=== PATIENT | female | born 1970 | race Caucasian/White ===

== ENCOUNTER → 2020-04-13 15:34 | Outpatient (CLI) | payer BC, SELFPAY ==
--- NOTE | ~2020-04-13 | MM_ITS ---
EXAMINATION: MM screening [facility] BI w roberta HISTORY: Screening TECHNIQUE: Craniocaudal and mediolateral oblique 3-D tomosynthesis images were obtained and synthetic 2-D images were generated. CAD analysis was submitted and interpreted. COMPARISON: Comparison to multiple prior studies sequentially, with oldest reviewed study dated 12/2013. BREAST PARENCHYMAL COMPOSITION: The breasts are heterogeneously dense, which may obscure small masses . FINDINGS: There is possible architectural distortion in the upper outer quadrant of the right breast anteriorly, CC tomographic image 33 and MLO tomographic image 28. The left breast is stable. There ar e benign bilateral breast calcifications. IMPRESSION: 1. Possible architectural distortion upper outer quadrant of the right breast anteriorly. 2. Additional mammographic views and possible breast ultrasound are recommended. BI-RADS Category 0: Incomplete: Needs additional imaging evaluation. Reviewed, dictated and finalized at location A. TRIANGULATION SPECIALIST IMPRESSION: 1. Possible architectural distortion upper outer quadrant of the right breast a nteriorly. 2. Additional mammographic views and possible breast ultrasound are recommended . BI-RADS Category 0: Incomplete: Needs additional imaging evaluation.
== END ==
PROVIDERS: Visit Provider Student in an Organized Health Care Education/Training Program
DX: Z12.31 Encounter for screening mammogram for malignant neoplasm of breast (principal); R92.8 Other abnormal and inconclusive findings on diagnostic imaging of breast
CPT/HCPCS: 77063; 77067

== ENCOUNTER → 2020-05-10 14:23 | Outpatient (CLI) | payer BC, SELFPAY ==
--- NOTE | ~2020-05-10 | MMUS_ITS ---
EXAMINATION: MM diagnostic mammo unilat RT, US breast RT complete HISTORY: Possible architectural distortion reported in the upper outer quadrant of the right breast a nteriorly on 04/13/2020 screening mammogram TECHNIQUE: Additional 3-D tomosynthesis images of the right breast were performed and synthetic 2-D i mages were generated. CAD analysis was submitted and interpreted. High resolution complete right mario st ultrasound was performed. COMPARISON: 04/13/2020 bilateral digital screening mammogram FINDINGS: MAMMOGRAPHIC FINDINGS: Irregular density and spiculation is suggested in the inner aspect of the upper outer quadrant of the right breast. ULTRASOUND: 11 - 12:00 1.5 cm from nipple: There are 2 irregular hypoechoic areas with bridging hypoechoic soft t issue and prominent posterior shadowing. There is internal vascularity. The irregularity may measure up to 2.3 cm dimension. The findings are highly suggestive of malignancy. IMPRESSION: 1. Irregular shadowing hypoechoic mass with internal vascularity at 11 - 12:00 1.5 cm from nipple, hi ghly suggestive of malignancy. 2. Ultrasound-guided biopsy is recommended. BI-RADS category 5, highly suggestive of malignancy; appropriate action should be taken. Dr. Houston telephoned the report and ultrasound guided biopsy recommendation on 05/10/[address] Davis. Reviewed, dictated and finalized at location A. T TECHNICIAN IMPRESSION: 1. Irregular shadowing hypoechoic mass with internal vascularity at 11 - 12:00 1.5 cm from nipple, highly suggestive of malignancy. 2. Ultrasound-guided biopsy is recommended. BI-RADS category 5, highly suggestive of malignancy; appropriate action should be taken. Dr. Houston telephoned the report and ultrasound guided biopsy recommendation on 07/11/[address] Davis.
== END ==
PROVIDERS: PCP Family Medicine; Visit Provider Student in an Organized Health Care Education/Training Program
DX: N63.11 Unspecified lump in the right breast, upper outer quadrant (principal)
CPT/HCPCS: 76641; 77065

== ENCOUNTER 2020-06-13 08:24 | Outpatient (CLI) | payer BC, SELFPAY ==
--- NOTE | 2020-06-13 | ECHO_ITS ---
Patient Info Name: Mariela Arevalo Age: 49 years : 1970 Gender: Female Ht: 64 in Wt: 160 lbs BSA: 1.83 m2 HR: 72 bpm BP: 133 / 87 mmHg Heart Rhythm: Sinus Rhythm Technical Quality: Good Exam Date: 06/13/2020 8:50 AM Exam Location: [facility] Patient Status: Outpatient Admit Date: 06/13/2020 Staff Ordering Physician: MichealLynnette MD Ip Architect: Flako Melgar RDCS Attending Provider: Micheal, Lynnette Lozano MD Referring Physician: Micheal MENDOZA; Exam Type: CA echo doppler color flow Study Info Indications C50.411 - Malignant neoplasm of upper-outer quadrant of right female breast Complete two-dimensional, color flow and Doppler transthoracic echocardiogram is performed. Strain analysis performed. Summary 1. Complete two-dimensional, color flow and Doppler transthoracic echocardiogram is performed. 2. Strain analysis performed. 3. Left ventricular chamber dimension is normal. 4. Left ventricular systolic function is normal, estimated at 60-65%. 5. There is no increased left ventricular wall thickness. 6. Left ventricular septal wall motion is normal. 7. The left ventricular diastolic function is grade I diastolic dysfunction. 8. Global longitudinal strain is borderline at -18 %. 9. There is mild tricuspid valve regurgitation. Left Ventricle Left ventricular chamber dimension is normal. Left ventricular systolic function is normal, estimated at 60-65%. There is no increased left ventricular wall thickness. Left ventricular septal wall motion is normal. The left ventricular diastolic function is grade I diastolic dysfunction. Global longitudinal strain is borderline at -18 %. Right Ventricle Right ventricular chamber dimension is normal. Right ventricular systolic function is normal. Left Atria Left atrial chamber dimension is normal. Right Atria Right atrial chamber dimension is normal. Atrial Septum Intact interatrial septum visualized by color flow imaging. Aortic Valve The aortic valve is trileaflet. There is no aortic valve sclerosis. There is no aortic valve stenosis. There is trace aortic valve regurgitation. Pulmonic Valve The pulmonic valve is normal. There is no pulmonic valve stenosis. There is trace pulmonic regurgitation. Mitral Valve The mitral valve has thickened leaflets. There is no mitral valve stenosis. There is trace mitral valve regurgitation. Tricuspid Valve The tricuspid valve leaflets are normal. There is no significant tricuspid valve stenosis. There is mild tricuspid valve regurgitation. No pulmonary hypertension, estimated pulmonary arterial systolic pressure is 18 mmHg. Pericardium/Pleural The pericardium appears normal. There is no pericardial effusion. Inferior Vena Cava Normal inferior vena cava with >50% collapse upon inspiration consistent with normal right atrial pressure, 5 mmHg. Aorta The aortic root size at the sinus of Valsalva is normal. The prox ascending aorta size is normal. Left Ventricular Outflow Tract Name Value Normal LVOT 2D LVOT Diameter 2.0 cm LVOT Doppler
== END 2020-06-13 08:25 | disposition home or self-care (01) ==
LOC: ANHCARD 08:26
PROVIDERS: PCP Family Medicine; Visit Provider Internal Medicine Medical Oncology
DX: C50.411 Malignant neoplasm of upper-outer quadrant of right female breast (principal); Z17.0 Estrogen receptor positive status [ER+]
CPT/HCPCS: 93306

== ENCOUNTER 2020-06-21 03:10 | Outpatient (CLI) | payer BC, SELFPAY ==
[2020-06-21 19:22] LABS: SARS-CoV-2 RNA PCR Negative
== END 2020-06-21 03:11 | disposition home or self-care (01) ==
LOC: ANHCOVIDDT 03:11
PROVIDERS: Visit Provider Surgery
DX: Z01.812 Encounter for preprocedural laboratory examination (principal); Z20.822 Contact with and (suspected) exposure to COVID-19
CPT/HCPCS: C9803; U0003; U0005

== ENCOUNTER 2020-06-24 02:46 | Day surgery (SDC) | payer BC, SELFPAY ==
[2020-06-20 15:19] VITALS: BMI 27.6
[2020-06-24] VITALS (7 sets, daily range): BP systolic 111–134; BP diastolic 71–89; PULSE 62–98; RESP 14–17; TEMP 36.2–36.8; O2SAT 98–100
--- NOTE | ~2020-06-24 | XR_ITS ---
EXAMINATION: XR chest port-a-cath/central EXAM DATE: 06/24/2020 13:31 INDICATION: Maria Ines catheter insertion. TECHNIQUE: Portable AP frontal chest x-ray was obtained. There is no prior study for comparison. FINDINGS: There is a left-sided portacatheter, IJ approach, tip overlying the cavoatrial junction, ex pected position. There is mild cardiomegaly. There is indistinct reticulation, possible mild pulmonary edema. Retrocar diac edema or pneumonia. There is no pneumothorax suspected. There are no osseous abnormalities ident ified. IMPRESSION: 1. Portacatheter in position. No evidence postprocedure pneumothorax. 2. Possible pulmonary edema and/or left basilar pneumonia. Reviewed, dictated and finalized at location B. OMER RELATIONS COORDINATOR
--- NOTE | ~2020-06-24 | XR_ITS ---
EXAMINATION: XR fl guide central line place DATE: 06/24/2020 13:19 INDICATION: Port placement. TECHNIQUE: 2 intraoperative fluoroscopic views of the chest were obtained. I was not present. Fluoros copy exposure time was 42 seconds. COMPARISON: None. FINDINGS: There is a left internal jugular port with tip at superior cavoatrial junction. IMPRESSION: 1. Port tip at superior cavoatrial junction. Reviewed, dictated and finalized at location A. ER ASSOCIATE
[2020-06-24] MEDS: LACTATED RINGERS 1,000 ML 30 ML IV CONT (10:59)
[2020-06-24] MEDS: KETOROLAC 15 MG/ML VIAL (*BKC) IV PUSH (11:00)
[2020-06-24 11:09] LABS: INR 0.9; Prothrombin Time 12.3 Seconds (11.1-14.7)
[2020-06-24 11:10] LABS: Partial Thromboplastin Time 26.9 SECONDS (22.3-36.8)
--- NOTE | 2020-06-24 11:31 | WPDANESEPPF ---
Anes - Initial Pre Proc Eval Procedure: Operation Date: 06/24/20 11:30 Proposed Procedures p Insertion Maria Ines Cath - Anthony Melissa DO Date/Time: 06/24/20 11:31 Surgeon: Anthony Melissa DO Pre Op Diagnosis: Malignant Neoplasm Of Upper Outer Quadrant RightBr Patient Data Age: 49 Gender: F Height: 5 ft 4 in Weight: 73.8 kg Last Vital Signs Temp 36.8 C 06/24/20 10:50 Pulse 90 06/24/20 10:50 Resp 16 06/24/20 10:50 BP 129/81 06/24/20 10:50 Pulse Ox 98 06/24/20 10:50 Allergies Allergy/AdvReac Type Severity Reaction Status Date / Time No Known Allergies Allergy Verified 06/24/20 10:30 Home Medications Medication Instructions Recorded Confirmed Type cetirizine 10 mg tablet 10 mg PO DAILY PRN 06/22/19 06/24/20 History alprazolam 0.5 mg PO QID PRN 06/20/20 06/24/20 History calcium carbonate [Caltrate 600] 600 mg PO DAILY 06/20/20 06/24/20 History clindamycin-benzoyl peroxide 1 applic TOPICAL EVERY OTHER DAY 06/20/20 06/20/20 History [Benzaclin Pump] escitalopram oxalate 30 mg PO QAM 06/20/20 06/24/20 History zolpidem 6.25 mg PO .QHS 06/20/20 06/24/20 History Laboratory Tests 06/24/20 10:54 PT 12.3 Seconds Seconds (11.1-14.7) INR 0.9 APTT 26.9 SECONDS SECONDS (22.3-36.8) Patient hx anesthesia problems: none Family hx anesthesia problems: none PMFSH Past Medical History Medical History Anemia Anxiety Hyperlipidemia Migraines Prediabetes Ruptured ear drum (~2018) Right Vitamin D deficiency Surgical History Surgical History History of endometrial ablation History of myomectomy S/P breast lumpectomy Family History Family History Grandparent Carcinoma of colon Father Diabetes mellitus Other Family history of malignant neoplasm of breast Social History Social History Smoking status: Never smoker Second hand tobacco smoke exposure: No Alcohol intake: current Alcohol use details: 3 DRINKS/MONTH Substance use: never Living arrangements: alone Spiritual care concerns: No Anes - Eval Final PreProcedure Day of Procedure 06/24/20 11:31 Patient weight: overweight Heart: regular rate and rhythm Lungs: clear to auscultation Airway: Mallampati scale class II Neurological: alert and oriented Last oral intake: >/= 8 hours ASA classification: III Emergent: no Anesthetic plan: proceed Anesthesia type and monitoring: general GIVS and standard monitoring Informed Consent: The patient's anesthetic plan and its attendant risks and benefits were discussed with the patient/family/POA. Questions were solicited and answers provided to the satisfaction of the patient/family/POA.
--- NOTE | 2020-06-24 12:00 | PM.IMHP ---
H&P: HPI History of Present Illness Date/Time: 06/24/20 12:00 Chief Complaint: right breast cancer Narrative: Mariela Arevalo is a 49 year old female who presents for Portacath placement. She was recently diagnosed with right breast cancer and is undergoing neoadjuvant treatment. She is in need of port placement for usp venous access. Review of Systems Review of Systems: All systems reviewed & are unremarkable except as noted in HPI and below Constitutional: Constitutional: Denies chills, Denies fever(s), Denies headache(s) and Denies weight loss Eyes: Eyes: Denies change in vision ENT: Denies dizziness, Denies headache(s), Denies neck mass and Denies throat swelling Cardiovascular: Cardiovascular: Denies chest pain, Denies lightheadedness and Denies dyspnea Respiratory: Respiratory: Denies cough, Denies dyspnea and Denies wheezing Gastrointestinal: Gastrointestinal: Denies abdominal pain, Denies change in bowel habits, Denies nausea and Denies vomiting Genitourinary: Genitourinary: Denies hematuria and Denies dysuria Musculoskeletal: Musculoskeletal: Reports as per HPI Integumentary/Breasts: Skin/Breast: Reports as per HPI Neurologic: Denies dizziness and Denies headache(s) Allergic/Immunologic: Allergic/Immunologic: Denies throat swelling and Denies wheezing PMFSH Past Medical History Medical History Anemia Anxiety Hyperlipidemia Migraines Prediabetes Ruptured ear drum (~2019) Right Vitamin D deficiency Surgical History Surgical History History of endometrial ablation History of myomectomy S/P breast lumpectomy Family History Family History Grandparent Carcinoma of colon Father Diabetes mellitus Other Family history of malignant neoplasm of breast Social History Social History Smoking status: Never smoker Second hand tobacco smoke exposure: No Alcohol intake: current Alcohol use details: 3 DRINKS/MONTH Substance use: never Living arrangements: alone Spiritual care concerns: No Meds Home Medications and Allergies Home Medications Medication Instructions Recorded Confirmed Type cetirizine 10 mg tablet 10 mg PO DAILY PRN 06/22/19 06/24/20 History alprazolam 0.5 mg PO QID PRN 06/20/20 06/24/20 History calcium carbonate [Caltrate 600] 600 mg PO DAILY 06/20/20 06/24/20 History clindamycin-benzoyl peroxide 1 applic TOPICAL EVERY OTHER DAY 06/20/20 06/20/20 History [Benzaclin Pump] escitalopram oxalate 30 mg PO QAM 06/20/20 06/24/20 History zolpidem 6.25 mg PO .QHS 06/20/20 06/24/20 History Allergies Allergy/AdvReac Type Severity Reaction Status Date / Time No Known Allergies Allergy Verified 06/24/20 10:30 Vital Signs Vital Signs - 24 hr 06/24/20 10:50 Temperature 36.8 C Pulse Rate 90 Respiratory Rate 16 Blood Pressure 129/81 Pulse Oximetry 98 Exam Const: General: no acute distress and alert Orientation/consciousness: patient oriented x3 HENMT: Head: normocephalic and atraumatic Ears: hearing grossly normal bilaterally General nose exam: Normal nares present Mouth: Yes Normal oral and palatal mucosa present Eyes: Periorbital: periorbital findings normal Sclera: sclerae normal EOM: EOMs intact bilaterally Neck: Neck: normal visual inspection, no lymphadenopathy and trachea midline Chest: Chest palpation & inspection: normal inspection of the chest Resp: Effort & Inspection: normal respiratory effort Auscultation: clear to auscultation bilaterally Cardio: Jugular venous distension: no JVD Rate: regular rate Rhythm: regular rhythm Heart sounds: S1 normal heart sound present and S2 normal heart sound present Peripheral pulses: Peripheral pulses 2+ throughout GI: Inspection: normal to inspecti
--- NOTE | 2020-06-24 12:02 | WPDHPUPDATE1 ---
History and Physical Update Update Date/Time: 06/24/20 12:02 History and Physical has been reviewed, including an updated exam of the patient. There are NO changes in the patient's condition. Risks, benefits, and alternatives have been discussed and questions answered. Patient agrees to proceed with procedure.
[2020-06-24] MEDS: ceFAZolin 2 GM/D5W 50 ML 2 GM/50 ML BAG IVPB (12:31)
[2020-06-24] MEDS: LIDO 1%/EPINEPHRINE 1:100,000 50 ML VIAL 30 ML INFILTRATE (12:56)
[2020-06-24] MEDS: HEPARIN SODIUM, PORCINE 10,000 UNITS/10 ML VIAL 10000 UNITS IV PUSH (12:57)
[2020-06-24] MEDS: HEPARIN SODIUM 5,000 UNITS/ML VIAL 5000 UNITS IRRIGATION (12:58)
--- NOTE | 2020-06-24 13:18 | PM.PROC ---
Procedure Note - Detailed Date of procedure: 06/24/20 Pre-op diagnosis: Malignant Neoplasm Of Upper Outer Quadrant RightBr Post-op diagnosis: same Procedure performed: Left internal jugular Port-A-Cath placement using ultrasound and fluoroscopic guidance Description of procedure: Procedure as well as risks, benefits, and alternatives were discussed with patient. Written consent was obtained and placed in chart prior to procedure. Patient was brought back to surgical suite. Was placed supine on operating table. Time-out was done confirm patient procedure. IV sedation was then administered by the Anesthesia Department. The chest and neck area was prepped and draped in sterile fashion using chlorhexidine prep. Patient was placed in Trendelenburg position. SonoSite ultrasound was used to identify the left internal jugular vein. It was visualized as a compressible vessel just lateral to the carotid artery. 1% lidocaine with epinephrine was infiltrated directly over the vessel under ultrasound guidance. An 18 gauge introducer needle was then advanced under ultrasound guidance directly into the left internal jugular vein. Dark nonpulsatile blood was aspirated. A 0.035 in guidewire was then advanced through the needle under fluoroscopic guidance. The guidewire was visualized advancing all the way down into the superior vena cava. 1% lidocaine with epinephrine was then infiltrated on the left anterior chest and along the tract up to the guidewire insertion site. A 3 cm incision was made with a 15 blade scalpel, and electrocautery was then used for dissection down through the subcutaneous tissue to the pectoral fascia. A pocket was created just inferior to the incision using blunt dissection. A small davin incision was then also made at the insertion site at the neck. The tunneler was then advanced from the chest incision up to the neck incision and the catheter tubing was brought up through this tract. The dilator and sheath were then advanced over the guidewire under fluoroscopic visualization. The dilator and guidewire were then removed leaving the sheath in place. The catheter tubing was then advanced through the sheath under fluoroscopic guidance. The sheath was unsnapped and carefully peeled away. The catheter tubing was released underneath the neck incision. Fluoroscopy was used to confirm proper placement of the catheter tubing and no kinks along its path. The catheter was then cut to proper length and secured to the port. The port was then accessed with a Li needle and aspirated and flushed with heparinized saline. The port function with ease. The port was then hep-locked with Hep-Lock solution. The port was then placed within the pocket that was created, and was secured to the fascia using 3 0 Prolene simple interrupted sutures. The patient was flattened out in bed. Shaun's fascia was reapproximated using 3 0 Vicryl simple interrupted sutures. The skin of the incisions was then approximated using 4-0 Monocryl subcuticular suture. Exofin glue was then applied on top. The patient was then awakened from anesthesia and transferred to recovery. Implants: Smart Port CT port Anesthesia: MAC and local (1% lidocaine with epinephrine) Surgeon: Anthony Melissa DO Estimated blood loss (mL): 5 Complications: No immediate complications Condition: stable Disposition: same day Findings: This is a 49-year-old woman who presented with a recent finding of right breast cancer. She underwent biopsy which confirmed cancer and was then referred to Oncology for neoadjuvant treatment. She is scheduled to start chemotherapy and is in need of long-term IV access. Discussions were made with the patient about treatment options and decision was made to proceed with Port-A-Cath placement. A smart Port CT port was placed using ultrasound and fluoroscopic guidance. SonWireless Tech ultrasound was used to identify the left internal jugular vein. This was visualized as compr
== END 2020-06-24 15:00 | disposition home or self-care (01) ==
PROVIDERS: PCP Family Medicine; Visit Provider Surgery
PROC: (CPT 36561; principal; 2020-06-24 11:30)
DX: C50.411 Malignant neoplasm of upper-outer quadrant of right female breast (principal); D64.9 Anemia, unspecified; F41.9 Anxiety disorder, unspecified; E78.5 Hyperlipidemia, unspecified; R73.03 Prediabetes; E55.9 Vitamin D deficiency, unspecified
CPT/HCPCS: 36561; 36415; 77001; 85610; 85730; C1788; J0690; J1200; J1644; J1885; J2250; J2405; J2704; J3010; J7040; J7120

== ENCOUNTER 2020-06-26 22:01 | Emergency (ER) | payer BC, SELFPAY ==
[2020-06-26 22:03] VITALS: BP 173/82; PULSE 98; RESP 20; TEMP 36.6; O2SAT 99
--- NOTE | 2020-06-26 22:23 | PC.NURSE ---
Patient had port placed to left upper chest on tami. Area surrounding the surgical site is red, warm, and subjectively itching. Skin glue is noted in place and surgical wound is closed and intact. There is no drainage noted to the area.
--- NOTE | 2020-06-26 22:28 | ED.ALLEREA ---
HPI - Allergic Reaction General Chief complaint: Allergic Reaction Stated complaint: allergic rxn Time Seen by Provider: 06/26/20 22:10 Source: patient Mode of arrival: ambulatory Limitations: no limitations History of Present Illness HPI narrative: A 49-year-old female [facility] of an allergic reaction. Patient states it is very localized to the area where she just recently had a port placed. Patient notes that she has breast cancer and had to have a port placed that she may begin chemotherapy on Saturday. She states starting yesterday she was noticing some itching in the area and states today it has been getting progressively worse. She does note that she presented today for 2 different reasons. Patient notes that she took 2 Benadryl around 4:30 PM and then approximately an hour prior to arrival she took a third Benadryl. She started having some flushness and anxiousness and was not certain if this was due to a Benadryl overdose. Secondly she is seeking advice and treatment for her reaction. Related Data Home Medications Medication Instructions Recorded Confirmed cetirizine 10 mg tablet 10 mg PO DAILY PRN 06/22/19 06/24/20 alprazolam 0.5 mg PO QID PRN 06/20/20 06/24/20 calcium carbonate 600 mg PO DAILY 06/20/20 06/24/20 clindamycin-benzoyl peroxide 1 applic TOPICAL EVERY OTHER DAY 06/20/20 06/20/20 [Benzaclin Pump] escitalopram oxalate 30 mg PO QAM 06/20/20 06/24/20 zolpidem 6.25 mg PO .QHS 06/20/20 06/24/20 Allergies Allergy/AdvReac Type Severity Reaction Status Date / Time No Known Allergies Allergy Verified 06/26/20 22:20 Review of Systems Review of Systems: Narrative: CONSTITUTIONAL: Denies fever, chills, or sweats. EYES: Denies visual changes, redness, or discharge. ENT: Denies rhinorrhea, congestion, sore throat, or otalgia. CARDIOVASCULAR: Denies chest pain, palpitations, or edema. RESPIRATORY: Denies cough or dyspnea. GASTROINTESTINAL: Denies abdominal pain, nausea, vomiting, or diarrhea. GENITOURINARY: Denies dysuria or hematuria. SKIN: Denies rash or itching. Pruritic rash on the anterior chest MUSCULOSKELETAL: Denies back pain, joint pain, or myalgia. NEUROLOGIC: Denies headache, numbness, dizziness, or weakness. PSYCHIATRIC: Denies anxiety or depression. [facility] Past Medical History Medical History Anemia Anxiety Hyperlipidemia Migraines Prediabetes Ruptured ear drum (~2019) Right Vitamin D deficiency Surgical History Surgical History History of endometrial ablation History of myomectomy S/P breast lumpectomy Family History Family History Grandparent Carcinoma of colon Father Diabetes mellitus Other Family history of malignant neoplasm of breast Social History Social History Smoking status: Never smoker Second hand tobacco smoke exposure: No Alcohol intake: current Substance use: never Gender identity (if verbalized by the patient): Female Spiritual care concerns: No Exam Narrative: Exam Narrative: GENERAL: Well-appearing, well-nourished, and in no acute distress. HEAD: Normocephalic, atraumatic. EYES: PERRLA and EOMI. ENT: Nares clear, no rhinorrhea or epistaxis. Mucous membranes moist. Oropharynx without tonsillar hypertrophy exudate or other lesions. Bilateral TMs pearly ace nonbulging NECK: Supple. No adenopathy or masses. No carotid bruits or JVD CHEST: Clear to auscultation. No respiratory distress. No wheezes rales or rhonchi. Erythema and what appears to be well-healing wound pocket on the left anterior chest HEART: Regular rate and rhythm. No murmur heard. Normal peripheral pulses. ABDOMEN: Soft, nontender, nondistended, normal active bowel sounds. EXTREMITIES: Normal range of motion. No edema. S
== END 2020-06-26 22:47 | disposition home or self-care (01) ==
PROVIDERS: Emergency Provider Emergency Medicine; PCP Family Medicine
DX: T78.40XA Allergy, unspecified, initial encounter (principal); C50.919 Malignant neoplasm of unspecified site of unspecified female breast; F41.9 Anxiety disorder, unspecified; E78.5 Hyperlipidemia, unspecified; E55.9 Vitamin D deficiency, unspecified; R73.03 Prediabetes; Z86.2 Personal history of diseases of the blood and blood-forming organs and certain disorders involving the immune mechanism
CPT/HCPCS: 99283

== ENCOUNTER 2020-08-19 13:59 | Outpatient (CLI) | payer BC, SELFPAY | END 2020-08-19 14:00 | disposition home or self-care (01) | LOC: ANHCOVIDVC 13:59 | PROVIDERS: PCP Family Medicine | DX: Z23 Encounter for immunization (principal) | CPT/HCPCS: 0001A; 91300 ==

== ENCOUNTER 2020-09-09 10:28 | Outpatient (CLI) | payer BC, SELFPAY | END 2020-09-09 10:29 | disposition home or self-care (01) | LOC: ANHCOVIDVC 10:28 | PROVIDERS: PCP Family Medicine | DX: Z23 Encounter for immunization (principal) | CPT/HCPCS: 0002A; 91300 ==

== ENCOUNTER 2020-09-12 10:36 | Outpatient (CLI) | payer BC, SELFPAY ==
--- NOTE | 2020-09-12 | ECHO_ITS ---
Patient Info Name: Mariela Arevalo Age: 49 years : 1970 Gender: Female Ht: 64 in Wt: 155 lbs BSA: 1.80 m2 HR: 89 bpm BP: 127 / 90 mmHg Heart Rhythm: Sinus Rhythm Technical Quality: Good Exam Date: 09/12/2020 11:28 AM Exam Location: [facility] Pulmonary Patient Status: Outpatient Admit Date: 09/12/2020 Staff Ordering Physician: Malik Wang MD Icu Clerk: Luisana Garcia RDCS Attending Provider: Malik Wang MD Referring Physician: Kathleen ARGUELLES; Exam Type: CA echo doppler color flow Study Info Indications C50.411 - Malignant neoplasm of upper-outer quadrant of right female breast Complete two-dimensional, color flow and Doppler transthoracic echocardiogram is performed. Summary 1. Complete two-dimensional, color flow and Doppler transthoracic echocardiogram is performed. 2. Left ventricular chamber dimension is normal. 3. Left ventricular systolic function is mildly reduced, estimated at 45-50%. 4. The left ventricular diastolic function is grade I diastolic dysfunction. 5. Global longitudinal strain is moderately elevated at -11 %. 6. There is trace tricuspid valve regurgitation. 7. No pulmonary hypertension, estimated pulmonary arterial systolic pressure is 20 mmHg. Left Ventricle Left ventricular chamber dimension is normal. Left ventricular systolic function is mildly reduced, estimated at 45-50%. There is no increased left ventricular wall thickness. The left ventricular diastolic function is grade I diastolic dysfunction. Global longitudinal strain is moderately elevated at -11 %. Right Ventricle Right ventricular chamber dimension is normal. Right ventricular systolic function is normal. Left Atria Left atrial chamber dimension is normal. Right Atria Right atrial chamber dimension is normal. Aortic Valve The aortic valve is probable trileaflet. There is no aortic valve stenosis. There is no aortic valve regurgitation. Mitral Valve The mitral valve has normal leaflets. There is mild mitral valve regurgitation. Tricuspid Valve The tricuspid valve leaflets are normal. There is trace tricuspid valve regurgitation. No pulmonary hypertension, estimated pulmonary arterial systolic pressure is 20 mmHg. Pericardium/Pleural The pericardium appears normal. There is trivial pericardial effusion. Inferior Vena Cava Normal inferior vena cava with >50% collapse upon inspiration consistent with normal right atrial pressure, 5 mmHg. Aorta The aortic root size at the sinus of Valsalva is normal. Left Ventricular Outflow Tract Name Value Normal LVOT 2D LVOT Diameter 1.9 cm LVOT Doppler LVOT Peak Gradient 3 mmHg LVOT Mean Gradient 1 mmHg LVOT VTI 19 cm LVOT VTI/AV VTI Ratio 0.8 LVOT Stroke Volume 54 ml LVOT CO 3.2 l/min LVOT CI 1.8 l/min/m2 Pulmonic Valve Name
== END 2020-09-12 10:37 | disposition home or self-care (01) ==
PROVIDERS: PCP Family Medicine; Visit Provider Internal Medicine Hematology & Oncology
DX: C50.411 Malignant neoplasm of upper-outer quadrant of right female breast (principal); Z17.0 Estrogen receptor positive status [ER+]; I51.89 Other ill-defined heart diseases
CPT/HCPCS: 93306

== ENCOUNTER 2020-10-24 10:15 | Emergency (ER) | payer BC, SELFPAY ==
--- NOTE | ~2020-10-24 | CT_ITS ---
EXAMINATION: CTA chest PE protocol EXAM DATE: 10/24/2020 13:43 INDICATION: Dyspnea. Right-sided breast cancer. TECHNIQUE: Spiral CTA of the chest (pulmonary arteries) was performed with 100 cc Omnipaque 350 intr avenous contrast injection. Images were acquired during the pulmonary arterial phase. Coronal maxi mum intensity projection 3D-reconstructions were created by the technologist on dedicated workstation . Axial, coronal and sagittal reformatted images were reviewed. The dose-length product (DLP) for t his examination was 276.80 mGy-cm. The exposure was tailored according to patient size (auto mA exp osure control), and iterative reconstruction (ASIR) was used as additional dose reduction technique. There is no prior study for comparison. FINDINGS: Positive for subsegmental right lower lobe pulmonary embolism (axial sequence 3 images 133 -140). No other pulmonary emboli identified. There is a left-sided portacatheter. No thoracic aortic dissection. The lungs are clear. There are no pleural or pericardial effusions. Tracheobronchia l tree is patent. There is no mediastinal, hilar or axillary lymphadenopathy. There is no pneumot horax. Heart normal in size. No evidence of coronary arterial calcification. Upper abdomen is un remarkable. There is mild thoracic spondylosis without osteoblastic or osteolytic lesions identifie d. IMPRESSION: Small, subsegmental right lower lobe pulmonary embolism. Reviewed, dictated and finalized at location A.
--- NOTE | ~2020-10-24 | XR_ITS ---
EXAMINATION: XR chest 1V portable DATE: 10/24/2020 11:15 INDICATION: Dyspnea. TECHNIQUE: A single frontal view of the chest was obtained. COMPARISON: Chest single view 06/24/2020 FINDINGS: The chest demonstrates clear lungs without pneumonia, pleural effusion, or pneumothorax. Th e heart size is normal. There is a left internal jugular port with tip in superior vena cava. Two den sities overlie right breast that may be markers. IMPRESSION: 1. No acute cardiopulmonary disease. Reviewed, dictated and finalized at location A.
[2020-10-24 10:27] VITALS: BP 137/89; PULSE 111; RESP 15; TEMP 36.7; O2SAT 97
[2020-10-24] MEDS: LORazepam INJ (*CRX) 2 MG/ML VIAL 1 MG IV PUSH (11:40)
[2020-10-24] MEDS: SODIUM CHLORIDE 0.9% IV 1,000 ML 999 ML IV CONT (11:41)
[2020-10-24 11:48] LABS: Basophils Percent Auto 0.4 % (0.2-1.2); Eosinophils Absolute Auto 0.1 K/mm3 (0-0.3); Eosinophils Percent Auto 1.8 % (0-4.4); Hematocrit 34.5 % (37.0-47.0); Hemoglobin 10.9 g/dL (12.0-15.0); Immature Granulocyte Absolute 0.01 K/mm3 (0.00-0.031); Immature Granulocyte Percent A 0.2 % (0-0.5); Lymphocytes Absolute Auto 1.84 K/mm3 (0.9-3.2); Lymphocytes Percent Auto 33.5 % (18.3-44.2); Mean Corpuscular HGB Conc 31.6 g/dl (32-36); Mean Corpuscular Hemoglobin 29.4 pg (26-34); Mean Platelet Volume 8.7 fl (7.4-10.4); Monocytes Absolute Auto 0.8 K/mm3 (0.1-0.6); Neutrophils Absolute Auto 2.8 K/mm3 (1.3-6.7); Neutrophils Percent Auto 50.1 % (45.5-73.1); Platelet Count Result 305 k/mm3 (150-375); Red Blood Count 3.71 M/mm3 (4.2-5.4); Red Cell Distribution Width 18.6 % (11.5-14.5); White Blood Count 5.5 K/mm3 (4.5-10.0)
[2020-10-24 11:57] LABS: Alanine Aminotransferase 18 U/L (4-35); Alkaline Phosphatase 79 U/L (38-126); Anion Gap 8 mmol/L (8-16); Aspartate Amino Transferase 37 U/L (14-36); Bilirubin,Total 0.6 mg/dL (0.2-1.3); Blood Urea Nitrogen 12 mg/dL (7-17); Calcium 9.4 mg/dL (8.4-10.2); Carbon Dioxide 25 mmol/L (22-30); Chloride 107 mmol/L (98-107); Estimated CRCL calculation 65 ml/min; Estimated Glomerular Filt Rate > 60; Glucose 96 mg/dL (65-105); Potassium 3.5 mmol/L (3.4-5.0); Sodium 140 mmol/L (137-145)
--- NOTE | 2020-10-24 12:50 | ECG_ITS ---
Measurements Intervals [place] Rate: 65 P: 43 VT: 166 QRS: -22 QRSD: 84 T: 17 QT: 365 QTc: 382 Interpretive Statements SINUS RHYTHM DELAYED PRECORDIAL R/S TRANSITION BORDERLINE T WAVE ABNORMALITY- INFERIOR LEADS BORDERLINE ECG Electronically Signed On 10-24-2020 18:47:39 CDT by Jamar Gee D.O.
--- NOTE | 2020-10-24 13:00 | PC.NURSE ---
Called lab to add on a trop and lipase
[2020-10-24] MEDS: LORazepam INJ (*CRX) 2 MG/ML VIAL 0.5 MG IV PUSH (13:14)
[2020-10-24 13:39] LABS: Lipase 321 U/L (23-300)
[2020-10-24 13:56] LABS: Troponin I < 0.012 ng/mL (0.000-0.034)
--- NOTE | 2020-10-24 14:28 | ED.ANXIETY ---
HPI - Anxiety General Chief Complaint: Anxiety Stated Complaint: anxiety Time Seen by Provider: 10/24/20 10:22 Source: RN notes reviewed History of Present Illness HPI narrative: Patient presents to emergency department from home for anxiety. The patient states that she has a history of anxiety for which she takes Xanax at home she states that her anxiety is increased over the past 4 days. She is currently followed by Dr. wang for lung cancer and had been on chemo but is stopped the chemo she not been able to tolerate it patient discussed with Dr. wang who sent to the ED for further evaluation today. Patient states with her anxiety she feels like she is panicking with shortness of breath and nausea she denies any chest pain or vomiting Related Data Home Medications Medication Instructions Recorded Confirmed dexamethasone 4 mg tablet 8 mg PO BID tablet 09/14/20 10/14/20 ondansetron HCl 8 mg tablet 8 mg PO TID tablet 09/14/20 10/14/20 prochlorperazine maleate 10 mg 10 mg PO TID tablet 09/14/20 10/14/20 tablet megestrol [Megace] 400 mg PO DAILY 10/07/20 10/14/20 cetirizine 10 mg tablet 10 mg PO DAILY PRN 10/10/20 10/14/20 escitalopram oxalate 20 mg tablet 30 mg PO DAILY tablet 10/10/20 10/14/20 potassium chloride 20 meq PO DAILY 10/14/20 10/14/20 Allergies Allergy/AdvReac Type Severity Reaction Status Date / Time No Known Allergies Allergy Verified 10/24/20 10:31 Review of Systems Review of Systems: Narrative: Gen.: Denies fevers or chills ENT: Denies congestion Respiratory: Reports shortness of breath CV: Denies chest pain or palpitations GI: Denies abdominal pain emesis or diarrhea reports nausea Musculoskeletal: Denies back pain or muscle pain Neuro: Denies numbness, tingling, weakness or focal weakness Skin: Denies rash Except as documented, all other systems reviewed and negative [facility] Past Medical History Medical History Anemia Anxiety Hyperlipidemia Insomnia Migraines Prediabetes Ruptured ear drum (~2018) Right Vitamin D deficiency Surgical History Surgical History (Updated 10/10/20 @ 15:01 by Edith Bartlett MD) History of endometrial ablation 2011 History of myomectomy 2012 Family History Family History Grandparent Carcinoma of colon Father Diabetes mellitus Other Family history of malignant neoplasm of breast Social History Social History Smoking status: Never smoker Second hand tobacco smoke exposure: No Alcohol intake: current Substance use: never Gender identity (if verbalized by the patient): Female Spiritual care concerns: No Exam Narrative: Exam Narrative: APPEARANCE: Anxious in appearance nontoxic, resting in bed EYES: EOMI HEENT: Normocephalic, atraumatic, OMM RESPIRATORY: No respiratory distress Clear to auscultation bilaterally with no rhonchi wheezing or rales. CARDIOVASCULAR: Regular rate and rhythm without murmurs rubs or gallops. ABDOMINAL: Soft, nontender, nondistended, no rebound or guarding MUSCULOSKELETAl: Moves all extremities. No clubbing, cyanosis or edema. NEURO: Awake and alert. Following commands, speech normal, no focal deficits SKIN:: Warm, dry. No rashes lesions or abrasions PSYCHIATRIC: Normal affect/mood, Course Course Emergency Course: Called and discussed with BRANDT Banuelos for Dr Valenzuela. Feels with signs of PE patient may be discharged follow-up as an outpatient Discussed with Dr. Wang presentation work-up sent request patient be started on Xarelto and will follow as an outpatient feels patient may be discharged. Requested patient be discharged with Ativan for her anxiety Discussed with patient results of workup and diagnosis. Discussed need for follow-up with primary care, proper use of medication, and reasons to return to the emergency department. [place]
[2020-10-24 15:40] VITALS: BP 129/85; PULSE 98; RESP 16; O2SAT 98
[2020-10-24] MEDS: HEPARIN SOD FLUSH 500 UNITS/5 ML SYRINGE (15:40)
[2020-10-24] MEDS: RIVAROXABAN 15 MG TABLET PO (15:40)
== END 2020-10-24 15:40 | disposition home or self-care (01) ==
PROVIDERS: Emergency Provider Emergency Medicine; PCP Family Medicine
DX: F41.9 Anxiety disorder, unspecified (principal); I26.99 Other pulmonary embolism without acute cor pulmonale; E78.5 Hyperlipidemia, unspecified; R73.03 Prediabetes
CPT/HCPCS: 36415; 71045; 71275; 80053; 83690; 84484; 85025; 93005; 96361; 96374; 96376; 99284; A9270; J2060; J7030; Q9967

== ENCOUNTER 2021-01-04 13:51 | Outpatient (CLI) | payer BC, SELFPAY ==
--- NOTE | 2021-01-04 14:00 | ECHO_ITS ---
Patient Info Name: Mariela Arevalo Age: 50 years : 1970 Gender: Female Ht: 64 in Wt: 142 lbs BSA: 1.72 m2 HR: 106 bpm BP: 127 / 99 mmHg Technical Quality: Good Exam Date: 01/04/2021 2:53 PM [facility] Patient Status: Outpatient Admit Date: 01/04/2021 Staff Ordering Physician: Malik Wang MD Sales Financial Analyst: Krzysztof Kennedy RDCS, RT Attending Provider: Malik Wang MD Referring Physician: Kathleen ARGUELLES; Exam Type: CA echo doppler color flow Study Info Indications Z85.3 - Personal history of malignant neoplasm of breast Complete two-dimensional, color flow and Doppler transthoracic echocardiogram is performed. Strain analysis performed. Summary 1. Complete two-dimensional, color flow and Doppler transthoracic echocardiogram is performed. 2. Left ventricular chamber dimension is normal. 3. Left ventricular systolic function is normal, estimated at 55-60%. 4. The left ventricular diastolic function is grade I diastolic dysfunction. 5. E/e' 6 is not elevated. 6. Global longitudinal strain is abnormal at -13.8%. 7. Left atrial chamber dimension is mildly enlarged. 8. There is mild mitral valve regurgitation. Left Ventricle E/e' 6 is not elevated. Global longitudinal strain is abnormal at -13.8%. Left ventricular chamber dimension is normal. Left ventricular systolic function is normal, estimated at 55-60%. The left ventricular diastolic function is grade I diastolic dysfunction. Right Ventricle Right ventricular systolic function is normal and with normal TAPSE 1.9 cm. Right ventricular chamber dimension is normal. Left Atria Left atrial chamber dimension is mildly enlarged. Right Atria Right atrial chamber dimension is normal. Aortic Valve The aortic valve is trileaflet. There is no aortic valve stenosis. There is no aortic valve regurgitation. Pulmonic Valve There is no pulmonic regurgitation. Mitral Valve There is no mitral valve stenosis. There is mild mitral valve regurgitation. Tricuspid Valve There is no tricuspid valve regurgitation. Pericardium/Pleural There is no pericardial effusion. Inferior Vena Cava Normal inferior vena cava with >50% collapse upon inspiration consistent with normal right atrial pressure, 5 mmHg. Aorta The aortic root size at the sinus of Valsalva is normal. Left Ventricular Outflow Tract Name Value Normal LVOT 2D LVOT Diameter 2.1 cm LVOT Doppler LVOT Peak Gradient 2 mmHg LVOT Mean Gradient 1 mmHg LVOT VTI 14 cm LVOT VTI/AV VTI Ratio 0.7 LVOT Stroke Volume 48 ml LVOT CO 4.3 l/min LVOT CI 2.5 l/min/m2 Mitral Valve Name Value Normal MV Doppler
== END 2021-01-04 13:52 | disposition home or self-care (01) ==
LOC: ANHCARD 14:03
PROVIDERS: PCP Family Medicine; Visit Provider Internal Medicine Hematology & Oncology
DX: C50.411 Malignant neoplasm of upper-outer quadrant of right female breast (principal); Z17.0 Estrogen receptor positive status [ER+]
CPT/HCPCS: 93306

== ENCOUNTER 2021-03-28 12:57 | Outpatient (CLI) | payer BC, SELFPAY ==
--- NOTE | 2021-03-28 | ECHO_ITS ---
Patient Info Name: Mariela Arevalo Age: 50 years : 1970 Gender: Female Ht: 64 in Wt: 147 lbs BSA: 1.75 m2 HR: 101 bpm BP: 140 / 95 mmHg Heart Rhythm: Sinus Rhythm Exam Date: 03/28/2021 1:10 PM Exam Location: [facility] Pulmonary Patient Status: Outpatient Admit Date: 03/28/2021 Staff Ordering Physician: Malik Wang MD Firmware Manager: Luisana Garcia RDCS Attending Provider: Malik Wang MD Referring Physician: Kathleen ARGUELLES; Exam Type: CA echo doppler color flow Study Info Indications - MALIGNANT NEOPLASM OF UPPER-OUTER QUADRANT OF RIGHT BREAST Complete two-dimensional, color flow and Doppler transthoracic echocardiogram is performed. Summary 1. Complete two-dimensional, color flow and Doppler transthoracic echocardiogram is performed. 2. Left ventricular chamber dimension is normal. 3. Left ventricular systolic function is normal, estimated at 60-65%. 4. The left ventricular diastolic function is grade I diastolic dysfunction. 5. E/e' 8 is minimally elevated. 6. Global longitudinal strain is abnormal at -11.9%. 7. Left atrial chamber dimension is mildly enlarged. 8. There is mild mitral valve regurgitation. 9. There is trace tricuspid valve regurgitation. 10. No pulmonary hypertension, estimated pulmonary arterial systolic pressure is 21 mmHg. Left Ventricle E/e' 8 is minimally elevated. Global longitudinal strain is abnormal at -11.9%. Left ventricular chamber dimension is normal. Left ventricular systolic function is normal, estimated at 60-65%. The left ventricular diastolic function is grade I diastolic dysfunction. Right Ventricle Right ventricular systolic function is normal and with normal TAPSE 2.0 cm. Right ventricular chamber dimension is normal. Left Atria Left atrial chamber dimension is mildly enlarged. Right Atria Right atrial chamber dimension is normal. Aortic Valve The aortic valve is trileaflet. There is no aortic valve stenosis. There is no aortic valve regurgitation. Pulmonic Valve There is no pulmonic regurgitation. Mitral Valve There is no mitral valve stenosis. There is mild mitral valve regurgitation. Tricuspid Valve There is trace tricuspid valve regurgitation. No pulmonary hypertension, estimated pulmonary arterial systolic pressure is 21 mmHg. Pericardium/Pleural There is no pericardial effusion. Inferior Vena Cava Normal inferior vena cava with >50% collapse upon inspiration consistent with normal right atrial pressure, 5 mmHg. Aorta The aortic root size at the sinus of Valsalva is normal. Left Ventricular Outflow Tract Name Value Normal LVOT 2D LVOT Diameter 1.8 cm LVOT Doppler LVOT Peak Gradient 2 mmHg LVOT Mean Gradient 1 mmHg LVOT VTI 17 cm LVOT VTI/AV VTI Ratio 0.7 LVOT Stroke Volume 45 ml LVOT CO 2.9 l/min LVOT CI 1.6 l/min/m2 Pulmonic Valve
== END 2021-03-28 12:58 | disposition home or self-care (01) ==
PROVIDERS: PCP Family Medicine; Visit Provider Internal Medicine Hematology & Oncology
DX: C50.411 Malignant neoplasm of upper-outer quadrant of right female breast (principal); Z17.0 Estrogen receptor positive status [ER+]
CPT/HCPCS: 93306

== ENCOUNTER 2021-07-28 08:56 | Outpatient (CLI) | payer BC, SELFPAY ==
--- NOTE | 2021-07-28 | ECHO_ITS ---
Patient Info Name: Mariela Arevalo Age: 50 years : 1970 Gender: Female Ht: 64 in Wt: 150 lbs BSA: 1.77 m2 HR: 99 bpm BP: 152 / 94 mmHg Technical Quality: Good Exam Date: 07/28/2021 9:32 AM Exam Location: [facility] Patient Status: Outpatient Admit Date: 07/28/2021 Staff Ordering Physician: Malik Wang MD Draw Operator: Luisana Garcia RDCS Attending Provider: Malik Wang MD Referring Physician: Kathleen ARGUELLES; Exam Type: CA echo doppler color flow Study Info Indications - MALIGNANT NEOPLASM OF RIGHT BREAST Complete two-dimensional, color flow and Doppler transthoracic echocardiogram is performed. Strain analysis performed. Summary 1. Complete two-dimensional, color flow and Doppler transthoracic echocardiogram is performed. 2. Left ventricular chamber dimension is normal. 3. Left ventricular systolic function is normal, estimated at 55-60%. 4. Left ventricular septal wall motion is abnormal with septal motion related to bundle branch block. 5. The left ventricular diastolic function is grade I diastolic dysfunction. 6. E/e' 8 is minimally elevated. 7. Global longitudinal strain is abnormal at -14.5%. 8. Left atrial chamber dimension is mildly enlarged. 9. There is mild mitral valve regurgitation. 10. There is mild tricuspid valve regurgitation. 11. No pulmonary hypertension, estimated pulmonary arterial systolic pressure is 23 mmHg. Left Ventricle E/e' 8 is minimally elevated. Global longitudinal strain is abnormal at -14.5%. Left ventricular chamber dimension is normal. Left ventricular systolic function is normal, estimated at 55-60%. Left ventricular septal wall motion is abnormal with septal motion related to bundle branch block. The left ventricular diastolic function is grade I diastolic dysfunction. Right Ventricle Right ventricular systolic function is normal and with normal TAPSE 1.7 cm. Right ventricular chamber dimension is normal. Left Atria Left atrial chamber dimension is mildly enlarged. Right Atria Right atrial chamber dimension is normal. Aortic Valve The aortic valve is trileaflet. There is no aortic valve stenosis. There is no aortic valve regurgitation. Pulmonic Valve There is no pulmonic regurgitation. Mitral Valve There is no mitral valve stenosis. There is mild mitral valve regurgitation. Tricuspid Valve There is mild tricuspid valve regurgitation. No pulmonary hypertension, estimated pulmonary arterial systolic pressure is 23 mmHg. Pericardium/Pleural There is no pericardial effusion. Inferior Vena Cava Normal inferior vena cava with >50% collapse upon inspiration consistent with normal right atrial pressure, 5 mmHg. Aorta The aortic root size at the sinus of Valsalva is normal. Left Ventricular Outflow Tract Name Value Normal LVOT 2D LVOT Diameter 2.0 cm LVOT Doppler LVOT Peak Gradient 3 mmHg LVOT Mean Gradient 1 mmHg LVOT VTI 17 cm LVOT VTI/AV VTI Ratio 0.6 LVOT Stroke Volume
== END 2021-07-28 08:57 | disposition home or self-care (01) ==
LOC: ANHCARD 08:57
PROVIDERS: PCP Family Medicine; Visit Provider Internal Medicine Hematology & Oncology
DX: C50.411 Malignant neoplasm of upper-outer quadrant of right female breast (principal); Z17.0 Estrogen receptor positive status [ER+]; I34.0 Nonrheumatic mitral (valve) insufficiency; I36.1 Nonrheumatic tricuspid (valve) insufficiency
CPT/HCPCS: 93306

== ENCOUNTER 2021-09-29 11:57 | Outpatient (CLI) | payer BC, SELFPAY ==
[2021-09-29 14:27] LABS: Hemoglobin A1C 5.9 % (<5.7)
== END 2021-09-29 11:58 | disposition home or self-care (01) ==
LOC: ANHLAB 11:59
PROVIDERS: PCP Family Medicine; Visit Provider Family Medicine
DX: R73.9 Hyperglycemia, unspecified (principal)
CPT/HCPCS: 36415; 83036

== ENCOUNTER 2021-10-20 01:30 | Day surgery (SDC) | payer BC, SELFPAY ==
[2021-10-16 15:36] VITALS: BMI 25.7
--- NOTE | 2021-10-16 16:03 | SUR.PREOP ---
Report to the Outpatient Waiting Room, entrance under the green pavilion located off [facility], at time __1100 on date __10/20/21 . OR Time: __1300 . - You and your visitor will be asked a series of questions to screen for COVID 19 for your protection. - Only one visitor is allowed at this time. - The patient visitor is requested to leave or wait in car when not with patient. - A mask is required within the hospital. Patients may have clear liquids (water, carbonated beverages, clear teas, apple juice) until 3 hours prior to surgery with a maximum of 20 ounces. - No food from midnight until time of surgery before 10:00am - Infants may have breast milk until 4 hours before surgery, infant formula 6 hours prior to surgery. - Children will be allowed to drink immediately following surgery. If applicable, please bring a bottle or sippy cup to assist with drinking. Juice, water, soda, and popsicles are readily available. For infants on formula, please bring formula the day of surgery. Pacifiers are allowed. Take the following medications with a SIP of water the morning of surgery: ____as directed Medications to discontinue per physician __n/a Date to take last dose Please no make-up, nail monegasque, hairspray, perfume, deodorant, or body powder the day of surgery. No jewelry (including any body piercings) or valuables the day of surgery, leave them at home. Please take a shower or bath the night before, or the morning of, surgery with an antibacterial soap. Wear comfortable, loose fitting clothing. Children are encouraged to wear pajamas. - Jewelry must be removed prior to entering the operating room. Rings and piercings that are not removed may be cut off. - The hospital will not accept responsibility for valuables. - Please leave all valuables, including medications, at home the day of surgery. If you are going home after surgery, a licensed food service driver must drive you home. - NO public transportation without another adult. - We recommend that an adult stay with you for 24 hours following discharge. - We also recommend that you do not drive, make important decision, drink alcoholic beverages, or take any drugs that were not prescribed by your health care provider for at least 24 hours after your discharge time. For Pediatric surgeries, we recommend two adults accompany the child home (only one inside the building at this time). Follow any additional instructions given to you from your surgeon. If you or anyone in your household have experienced Covid symptoms in the past week, please notify your surgeon or the nurse liaison at the phone number below for possible testing. Telephone instructions given to patient and asked if any additional questions and then verbalized understanding. Patient advised to call surgeon office or pre surgery nurse liaison [phone] if any additional questions.
[2021-10-20] VITALS (7 sets, daily range): BP systolic 136–171; BP diastolic 78–93; PULSE 64–72; RESP 16; TEMP 36.6; O2SAT 96–100
--- NOTE | 2021-10-20 09:55 | PM.HPGS ---
History of Present Illness History of Present Illness Consent: Risks, benefits, and alternatives of removal of Port-A-Cath have been discussed and questions answered. Patient agrees to proceed with procedure. Chief complaint: malignant neoplasm outer upper quad rt breast Narrative: Mariela Arevalo is a 50 year old female who has been working with Dr. Wang for treatment of a invasive lobular carcinoma of the right breast. She has had chemotherapy surgery and Right-sided mastectomy with sentinel lymph node biopsy in November of 2020. She had a port placed in June [address] Baldomero vasquez of. She is now finished with chemotherapy and has had approval from Dr. Wang to have this port removed. She presents this time for same. Review of Systems Constitutional: Constitutional: Reports no additional constitutional complaints, Reports fatigue and Denies malaise Eyes: Eyes: Denies change in vision and Denies loss of vision ENT: Reports Normal hearing present, Denies change in voice, Denies dizziness, Denies hoarseness and Denies sore throat Cardiovascular: Cardiovascular: Denies chest pain, Denies leg edema and Denies dyspnea Respiratory: Respiratory: Denies cough, Denies dyspnea and Denies wheezing Gastrointestinal: Gastrointestinal: Denies hematochezia, Denies change in bowel habits and Denies heartburn Genitourinary: Genitourinary: Denies urinary frequency and Denies urinary incontinence Integumentary/Breasts: Comments: status post lap a carcinoma of the right breast with biopsies, neoadjuvant chemotherapy followed by right-sided mastectomy with sentinel lymph node biopsy and then her to immune therapy x1 year. Now on estrogen blocking therapy. Neurologic: Reports Normal hearing present, Denies confusion, Denies dizziness, Denies loss of vision, Denies memory loss and Denies seizure-like activity Psychiatric: Psychiatric: Denies confusion, Denies depression and Denies memory loss Endocrine: Endocrine: Denies cold intolerance and Reports flushing ( occasional hot flashes) Hematologic/Lymphatic: Hematologic/Lymphatic: Denies easy bleeding and Denies easy bruising Allergic/Immunologic: Allergic/Immunologic: Denies wheezing PMFSH Past Medical History Medical History (Updated 10/20/21 @ 12:33 by Jeremie Kaplan MD) Anemia Anxiety Essential (primary) hypertension (Unknown) History of pulmonary embolus (PE) completed course of Xarelto May 2021 Hyperlipidemia (Unknown) Insomnia Migraines Port-A-Cath in place Removed on 10/23/2021 Prediabetes Ruptured ear drum (~2019) Right Vitamin D deficiency Surgical History Surgical History H/O breast reconstruction (~04/05/21) History of endometrial ablation 2011 History of right mastectomy Family History Family History Grandparent Carcinoma of colon Father Diabetes mellitus Other Family history of malignant neoplasm of breast Social History Social History Smoking status: Never smoker Second hand tobacco smoke exposure: No Alcohol intake: current Alcohol use details: 3 DRINKS/MONTH Substance use: never Gender identity (if verbalized by the patient): Female Spiritual care concerns: No Meds Home Medications and Allergies Home Medications Medication Instructions Recorded Confirmed Type cetirizine 10 mg tablet 10 mg PO DAILY PRN 10/10/20 10/16/21 History cyclobenzaprine 5 mg tablet 5 mg PO DAILY PRN #30 tablet 03/29/21 10/16/21 Rx tamoxifen 20 mg tablet 20 mg PO DAILY tablet 03/29/21 10/20/21 History zolpidem 12.5 mg tablet,extended 12.5 mg PO .QHS #30 tablet 03/29/21 10/16/21 Rx release,multiphase ferrous sulfate 27 mg PO EVERY OTHER DAY 07/28/21 10/20/21 History escitalopram oxalate 20 mg tablet 20 mg PO DAILY tablet 08/23/21 10/20/21 History gabapentin 400 mg caps
--- NOTE | 2021-10-20 12:30 | WPDHPUPDATE1 ---
History and Physical Update Update Date/Time: 10/20/21 12:30 History and Physical has been reviewed, including an updated exam of the patient. There are NO changes in the patient's condition. Risks, benefits, and alternatives have been discussed and questions answered. Patient agrees to proceed with procedure.
--- NOTE | 2021-10-20 13:36 | P.OP_ITS ---
Procedure Note - Detailed Date of Procedure 10/20/21 Pre-op Diagnosis 1. Indwelling Port-A-Cath 2. 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 Now no longer in use. Plant to remove under local anesthetic. Findings Standard Smart Port catheter and port all intact upon removal. Description of Procedure Prior to the procedure the patient was seen in the holding area and the area of proposed surgery was marked. All questions were answered and the patient wished to proceed with removal of the Port-A-Cath. The patient was brought to the operating room and placed supine. The entire left neck, chest, and shoulder were prepped with chlorhexidine. The area was draped off. Time-out was performed confirming patient and site of surgery. Following this a 15 blade knife was used to make incision directly on the scar from the previous port placement. This was done after infiltrating local anesthetic into the area of and inferior to the scar and into the area of the pocket containing the port to some degree using 1% xylocaine with epinephrine. Following this we carefully dissected down to the junction of the port and catheter. Bovie cautery with needle-tip was used to carefully incise the capsule around the port and free up the scar tissue around the junction of the port and catheter. Two Prolene sutures that were holding the port to the underl jesus fascia were carefully excised with a 15 blade knife and mosquito hemostats. Following this the port was brought up and out of the pocket. Then watching the patient's respirations I carefully removed the catheter in one smooth pull while applying pressure in the lower right neck area at the catheter exit site as the patient was breathing out. Pressure was held for 1 minute. I used Bovie cautery on some the subcutaneous tissues as we waited for good clotting. Again hemostasis was checked in the wound using Bovie cautery for superficial hemostasis in the subcutaneous tissues. Following this closure was obtained with 2 layers. I used buried subcutaneous sutures of 3-0 Vicryl in the subcutaneous layer followed by a running subcuticular closure of 4-0 Vicryl on the skin. Patient tolerated the procedure well. Estimated blood loss was 3 cc Sponge, needle, and instrument counts were correct at the end the procedure and patient was taken to the outpatient recovery area in good condition. Implants none Estimated Blood Loss 3 Drains No Packing No Pathology None sent Complications No immediate complications Condition Stable Disposition Same day
== END 2021-10-20 13:49 | disposition home or self-care (01) ==
PROVIDERS: PCP Family Medicine; Visit Provider Surgery
PROC: (CPT 36589; principal; 2021-10-20 13:00)
DX: Z45.2 Encounter for adjustment and management of vascular access device (principal); Z85.3 Personal history of malignant neoplasm of breast; Z92.21 Personal history of antineoplastic chemotherapy; Z90.11 Acquired absence of right breast and nipple; I10 Essential (primary) hypertension; E78.5 Hyperlipidemia, unspecified; E55.9 Vitamin D deficiency, unspecified; D64.9 Anemia, unspecified; R73.03 Prediabetes; F41.9 Anxiety disorder, unspecified; Z86.711 Personal history of pulmonary embolism
CPT/HCPCS: 36590

== ENCOUNTER 2022-11-06 11:03 | Outpatient (CLI) | payer BC, SELFPAY ==
[2022-11-06 14:24] LABS: Cholesterol 203 mg/dL (0-200); HDL Direct 76 mg/dL; Triglycerides 108 mg/dL (<150)
[2022-11-06 14:36] LABS: LDL Cholesterol Direct 105 mg/dL
== END 2022-11-06 11:04 | disposition home or self-care (01) ==
LOC: ANHGOSHLAB 11:03
PROVIDERS: PCP Family Medicine; Visit Provider Nurse Practitioner Family
DX: Z13.29 Encounter for screening for other suspected endocrine disorder (principal); Z13.220 Encounter for screening for lipoid disorders
CPT/HCPCS: 36415; 80061; 84443

== ENCOUNTER 2023-03-01 15:28 | Outpatient (CLI) | payer SELFPAY ==
--- NOTE | ~2023-03-01 | XR_ITS ---
XR_CERV2-3V_CR DATE: 03/01/2023 15:43 INDICATION: Neck pain, right arm pain and numbness. No injury. TECHNIQUE: AP, open-mouth, lateral views COMPARISON: None FINDINGS: There is mild levoscoliosis of the cervical and upper thoracic spine. Cervical curvature is intact on lateral view. C1 and C2 are normally aligned and the odontoid process is intact. C2-3, C3-4 and C4-5 interspaces are well preserved. There is mild loss of disc space height and anterior posterior spurring at C5-6. Mild loss of height at C6-7. IMPRESSION: Degenerative disc disease at C5-6 and C6-7 Reviewed, dictated and finalized at Location A. Reviewed, dictated and finalized at location A.
--- NOTE | ~2023-03-01 | XR_ITS ---
XR shoulder RT min 2V DATE: 03/01/2023 15:43 INDICATION: Neck pain, right arm pain and numbness. TECHNIQUE: 4 views COMPARISON: None FINDINGS: No fracture or dislocation, periosteal reaction or bone destruction. No abnormal calcifica tion. Surgical clips right axillary area. IMPRESSION: Negative right shoulder Reviewed, dictated and finalized at location A. IMPRESSION: Negative right shoulder
== END 2023-03-01 15:29 ==
PROVIDERS: PCP Nurse Practitioner Family; Visit Provider Nurse Practitioner Family
DX: R20.2 Paresthesia of skin (principal); M25.512 Pain in left shoulder; M50.322 Other cervical disc degeneration at C5-C6 level; M50.323 Other cervical disc degeneration at C6-C7 level
CPT/HCPCS: 72040; 73030

== ENCOUNTER 2023-04-09 10:58 | Outpatient (CLI) | payer OTHER, SELFPAY ==
[2023-04-09 11:12] LABS: Basophils Percent Auto 0.6 % (0.2-1.2); Eosinophils Absolute Auto 0.3 K/mm3 (0-0.3); Hematocrit 38.5 % (37.0-47.0); Hemoglobin 12.4 g/dL (12.0-15.0); Immature Granulocyte Absolute 0.02 K/mm3 (0.00-0.031); Immature Granulocyte Percent A 0.4 % (0-0.5); Lymphocytes Absolute Auto 1.78 K/mm3 (0.9-3.2); Lymphocytes Percent Auto 35.7 % (18.3-44.2); Mean Corpuscular HGB Conc 32.2 g/dl (32-36); Mean Corpuscular Hemoglobin 30.1 pg (26-34); Mean Corpuscular Volume 93.4 fl (80-100); Monocytes Absolute Auto 0.6 K/mm3 (0.1-0.6); Monocytes Percent Auto 11.6 % (2.6-8.5); Neutrophils Absolute Auto 2.3 K/mm3 (1.3-6.7); Neutrophils Percent Auto 46.7 % (45.5-73.1); Platelet Count Result 276 k/mm3 (150-375); Red Blood Count 4.12 M/mm3 (4.2-5.4); Red Cell Distribution Width 13.3 % (11.5-14.5)
[2023-04-09 13:45] LABS: Alanine Aminotransferase 26 U/L (6-35); Albumin Level 3.9 g/dL (3.5-5.1); Alkaline Phosphatase 69 U/L (38-126); Anion Gap 5 mmol/L (8-16); Aspartate Amino Transferase 32 U/L (14-36); Bilirubin,Total 0.4 mg/dL (0.2-1.3); Blood Urea Nitrogen 16 mg/dL (7-17); Calcium 9.1 mg/dL (8.4-10.2); Carbon Dioxide 29 mmol/L (22-30); Chloride 103 mmol/L (98-107); Estimated Glomerular Filt Rate > 60; Glucose 154 mg/dL (65-110); Potassium 3.4 mmol/L (3.4-5.0); Sodium 137 mmol/L (137-145)
[2023-04-12 06:06] LABS: CA 15-3 6 U/mL (<32)
== END 2023-04-09 10:59 | disposition home or self-care (01) ==
LOC: ANHLAB 11:01
PROVIDERS: PCP Nurse Practitioner Family; Visit Provider Internal Medicine Hematology & Oncology
DX: C50.411 Malignant neoplasm of upper-outer quadrant of right female breast (principal); Z17.0 Estrogen receptor positive status [ER+]
CPT/HCPCS: 36415; 80053; 85025; 86300; 97110; 97530

== ENCOUNTER 2023-05-07 15:30 | Outpatient (RCR) | payer OTHER, SELFPAY ==
--- NOTE | 2023-03-12 16:51 | OPREHPOC ---
Outpatient Therapy Plan of Care This is a Multidisciplinary Plan of Care that may contain components documented by all disciplines (PT, OT, and ST.) PT Problem 1 PT Problem #1 Knowledge Deficit PT Goal 1 Goal Pt to be IND with issued HEP. Target Visit 4 PT Problem 2 PT Problem #2 Pain PT Goal 1 Goal Pt to report R shoulder pain no greater than 3/10 in the last week. Target Visit 4 PT Goal 2 Goal Pt to report 75% improvement in overall symptoms. Target Visit 4 PT Problem 3 PT Problem #3 Impaired Sensation PT Goal 1 Goal Pt to decline radicular symptoms in the last week Target Visit 4 PT Problem 4 PT Problem #4 Impaired Strength PT Goal 1 Goal Pt to improve janeth shoulder strength to grossly 4+/ 5. Target Visit 4
--- NOTE | 2023-03-12 16:51 | PTOPEVAL1 ---
Assessment and note entered by José Miguel Maria, PT, DPT Evaluation Information Assessment Status Evaluation Diagnosis R shoulder pain, cervical radiculopathy Onset 2 years Subjective Information Pt reports a 2 year history of numbness and tingling in her R lower arm, down her forearm, and into her little finger. She states this has increased over the last month. Reported Pain Level Pain Score 7: Self Report Assessment PT Clinical Summary Mariela presents to therapy today for her initial evaluation with a diagnosis of R shoulder pain. Today she reports altered sensation down her R arm , has increased tenderness at the medical scapular bordered, and a positive neural tension test. Today she demonstrates janeth shoulder ROM and cervical ROM this is WNL, she has good shoulder strength and with resistance her pain does not increase. Skilled therapy services are indicated to decreased her neural compression, to improve posture, to limit radiculopathy, and to return to PLOF. Plan of Care Interventions Electrical Stimulation,Hot Pack/Cold Pack,Manual Therapy,Mechanical Traction,Neuro Re-education, Patient/Caregiver Educati,Therapeutic Activities, Therapeutic Exercise PT Services Indicated Yes Treatment Frequency and 1x/wk for 4 visits Duration These treatments will address the objective and functional deficits as defined above. The patient will be advanced safely and appropriately in order for the patient to progress towards his/her prior level of function. Additional exercises will be introduced and as well as a comprehensive home exercise program upon discharge, if needed, ?to ensure carryover of functional gains achieved in the clinic. This treatment plan has been reviewed and agreement upon by the patient.
--- NOTE | 2023-04-09 16:19 | PTOPPROG ---
Assessment and note entered by José Miguel Maria, PT, DPT Evaluation Information Assessment Status Progress Diagnosis R shoulder pain, cervical radiculopathy Onset 2 years Subjective Information Pt states her neck is tight and is always tight but is getting a lot better. Her shoulder is feeling good for the most part as well. Pt reports 60% improvement in overall symptoms. Assessment PT Clinical Summary Mariela presents to therapy today for her progress report following 5 visits of skilled therapy to treat her diagnosis of R shoulder pain. Today she reports improved sensation and pain in the last week. She continues to demonstrates good cervical and shoulder ROM and strength but has pain with resisted shoulder motions. Continuation of skilled therapy services are indicated to improve posture , to improve shoulder stability, to manage pain and to return to PLOF. Plan of Care Interventions Electrical Stimulation,Hot Pack/Cold Pack,Manual Therapy,Mechanical Traction,Neuro Re-education, Patient/Caregiver Educati,Therapeutic Activities, Therapeutic Exercise PT Services Indicated Yes Treatment Frequency and 1x/wk for 4 visits Duration These treatments will address the objective and functional deficits as defined above. The patient will be advanced safely and appropriately in order for the patient to progress towards his/her prior level of function. Additional exercises will be introduced and as well as a comprehensive home exercise program upon discharge, if needed, ?to ensure carryover of functional gains achieved in the clinic. This treatment plan has been reviewed and agreement upon by the patient.
--- NOTE | 2023-05-07 16:08 | PTOPDC ---
Assessment and note entered by José Miguel Maria, PT, DPT Evaluation Information Assessment Status Discharge Diagnosis R shoulder pain, cervical radiculopathy Onset 2 years Subjective Information Pt states things have been going pretty well for the last week or so. She reports a 2/10 pain in the last 2 days. She states she is still getting R hand numbness, especially by the end of the day. She states the last couple of days she has woken up and her entire hand will be numb from the wrist down. She states her pain has been about the same for the last month or so. She states traction has been helpful. Reported Pain Level Pain Score 2,2: Self Report Assessment PT Clinical Summary Mariela presents to therapy today for her progress report following 6 visits of skilled therapy to treat her diagnosis of R shoulder pain. Today she demonstrates minimal improvements in her symptoms since starting therapy. She would like to continue her HEP IND and be discharged from therapy at this time. She has a nerve conduction study set up . Plan of Care PT Services Indicated No
== END 2023-05-07 16:24 | disposition home or self-care (01) ==
LOC: ANHGOSHPT 15:30
PROVIDERS: PCP Nurse Practitioner Family; Visit Provider Nurse Practitioner Family
DX: M25.511 Pain in right shoulder (principal)
CPT/HCPCS: 97012; 97110; 97140; 97161; 97530

== ENCOUNTER 2023-06-12 10:27 | Outpatient (CLI) | payer OTHER, SELFPAY ==
--- NOTE | 2023-06-12 11:15 | NEURO_ITS ---
Impression: # Complains of elbow/wrist/shoulder pain. # Normal Nerve Conduction Study, no Carpal Tunnel Syndrome or ulnar neuropathy. # Normal needle/EMG. # Clinical correlation recommended. Nerve Conduction Studies Anti Sensory Summary Table Stim Site NR Peak (ms) P-T Amp (?V) Site1 Site2 Delta-P (ms) Dist (cm) Perry (m/s) Left Median Anti Sensory (2-3nd Digit) Wrist 2.8 49.5 Wrist 2-3nd Digit 2.8 14.0 50 Wrist 2.8 61.5 Wrist 2-3nd Digit 2.8 14.0 50 Right Median Anti Sensory (2-3nd Digit) Wrist 2.9 88.1 Wrist 2-3nd Digit 2.9 14.0 48 Wrist 2.8 93.5 Wrist 2-3nd Digit 2.9 14.0 48 Left Radial Anti Sensory (Base 1st Digit) Wrist 1.9 62.8 Wrist Base 1st Digit 1.9 0.0 Right Radial Anti Sensory (Base 1st Digit) Wrist 2.1 13.6 Wrist Base 1st Digit 2.1 0.0 Left Ulnar Anti Sensory (5th Digit) Wrist 2.2 99.5 Wrist 5th Digit 2.2 14.0 64 Right Ulnar Anti Sensory (5th Digit) Wrist 2.3 88.5 Wrist 5th Digit 2.3 14.0 61 Motor Summary Table Stim Site NR Onset (ms) O-P Amp (mV) Site1 Site2 Delta-0 (ms) Dist (cm) Perry (m/s) Left Median Motor (Abd Poll Brev) Wrist 2.7 11.8 Elbow Wrist 4.6 27.0 59 Elbow 7.3 4.1 Right Median Motor (Abd Poll Brev) Wrist 2.7 10.3 Elbow Wrist 4.9 28.0 57 Elbow 7.6 8.3 Left Ulnar Motor (Abd Dig Minimi) Wrist 2.4 6.7 A Elbow Wrist 4.6 28.0 61 A Elbow 7.0 6.2 Right Ulnar Motor (Abd Dig Minimi) Wrist 2.7 5.6 A Elbow Wrist 4.9 29.0 59 A Elbow 7.6 3.8 F Wave Studies NR F-Lat (ms) L-R F-Lat (ms) Left Median (Mrkrs) (Abd Poll Brev) 25.70 1.25 Right Median (Mrkrs) (Abd Poll Brev) 26.95 1.25 Left Ulnar (Mrkrs) (Abd Dig Min) 25.39 0.86 Right Ulnar (Mrkrs) (Abd Dig Min) 26.25 0.86 EMG Side Muscle Nerve Root Ins Act Fibs Amp Dur Recrt Comment Right 1stDorInt Ulnar C8-T1 Nml Nml Nml Nml Nml Right Ext Indicis Radial (Post Int) C7-8 Nml Nml Nml Nml Nml Right Ext Digitorum Radial (Post Int) C7-8 Nml Nml Nml Nml Nml Right BrachioRad Radial C5-6 Nml Nml Nml Nml Nml Right PronatorTeres Median C6-7 Nml Nml Nml Nml Nml Right Abd Poll Brev Median C8-T1 Nml Nml Nml Nml Nml Left 1stDorInt Ulnar C8-T1 Nml Nml Nml Nml Nml Left Ext Indicis Radial (Post Int) C7-8 Nml Nml Nml Nml Nml Left Ext Digitorum Radial (Post Int) C7-8 Nml Nml Nml Nml Nml Left BrachioRad Radial C5-6 Nml Nml Nml Nml Nml Left PronatorTeres Median C6-7 Nml Nml Nml Nml Nml Left Abd Poll Brev Median C8-T1 Nml Nml Nml Nml Nml Right ABD Dig Min Ulnar C8-T1 Nml Nml Nml Nml Nml Left ABD Dig Min Ulnar C8-T1 Nml Nml Nml Nml Nml MTDD
== END 2023-06-12 10:28 | disposition home or self-care (01) ==
LOC: ANHNEURO 10:28
PROVIDERS: PCP Nurse Practitioner Family; Visit Provider Nurse Practitioner Family
DX: R20.0 Anesthesia of skin (principal)
CPT/HCPCS: 95886; 95911

== ENCOUNTER → 2023-07-15 14:17 | Outpatient (CLI) | payer OTHER, SELFPAY ==
--- NOTE | ~2023-07-15 | MR_ITS ---
EXAMINATION: MR cervical spine wo con DATE: 07/15/2023 14:49 INDICATION: Cervical radicular pain with neck and right shoulder pain. TECHNIQUE: Magnetic resonance imaging (MRI) of the cervical spine was performed without intravenous c ontrast. Sequences included sagittal T2-weighted FSE, sagittal T2-weighted FS FSE, sagittal T1-weight ed FSE, axial MERGE and axial T2-weighted FSE. COMPARISON: None FINDINGS: Bone alignment is normal. Vertebral body heights are normal. Bone marrow signal intensity is normal . Mild disc height loss at C5-C6. Annular fissures at C5-C6 and C6-C7. Cord signal intensity is shaan l. Cervical soft tissues are unremarkable. The following disc levels are specifically discussed: C2-C3: The disc does not extend beyond the endplate margin. There is no uncovertebral joint osteoarth ritis. There is mild bilateral facet joint osteoarthritis. There is no neural foraminal stenosis. The re is no central canal stenosis. C3-C4: The disc does not extend beyond the endplate margin. There is no uncovertebral joint osteoarth ritis. There is mild right and mild to moderate left facet joint osteoarthritis. There is mild left n eural foraminal stenosis. There is no central canal stenosis. C4-C5: Disc is bulging. There is mild bilateral uncovertebral joint osteoarthritis. There is moderate bilateral facet joint osteoarthritis. There is mild bilateral neural foraminal stenosis. There is mi ld central canal stenosis. C5-C6: Annular fissure and prominent diffuse disc bulge. There is mild bilateral uncovertebral joint osteoarthritis. There is mild right and moderate left facet joint osteoarthritis. There is mild bilat eral neural foraminal stenosis. There is mild central canal stenosis with mild flattening of the vent ral surface of the cord. C6-C7: Annular fissure and small central disc protrusion. There is mild bilateral uncovertebral joint osteoarthritis. There is mild bilateral facet joint osteoarthritis. There is minimal bilateral neura l foraminal stenosis. There is mild central canal stenosis. C7-T1: The disc does not extend beyond the endplate margin. There is no uncovertebral joint osteoarth ritis. There is mild bilateral facet joint osteoarthritis. There is no neural foraminal stenosis. The re is no central canal stenosis. IMPRESSION: 1. Mild cervical spondylosis most prominent at C5-C6. Reviewed, dictated and finalized at location A. [employer]
== END ==
PROVIDERS: PCP Nurse Practitioner Family; Visit Provider Nurse Practitioner Family
DX: M47.22 Other spondylosis with radiculopathy, cervical region (principal)
CPT/HCPCS: 72141

== ENCOUNTER 2023-09-10 15:15 | Outpatient (CLI) | payer OTHER, SELFPAY ==
--- NOTE | ~2023-09-10 | XR_ITS ---
XR thoracic spine 3V DATE: 09/10/2023 15:48 INDICATION: Thoracic back pain TECHNIQUE: AP, lateral, swimmer views COMPARISON: None FINDINGS: There is osteopenia. Mild thoracic dextroscoliosis. No fracture or dislocation or bone destruction. The thoracic pedicles are intact. The thoracic inters paces are largely preserved. There is minimal degenerative spurring of the thoracic spine. No paraspi nal soft tissue thickening. IMPRESSION: Osteopenia Mild dextro scoliosis Minimal degenerative spurring Reviewed, dictated and finalized at location B.
== END 2023-09-10 15:16 ==
PROVIDERS: PCP Nurse Practitioner Family; Visit Provider Nurse Practitioner Family
DX: M54.6 Pain in thoracic spine (principal); M85.88 Other specified disorders of bone density and structure, other site
CPT/HCPCS: 72072

== ENCOUNTER 2023-10-08 14:42 | Outpatient (CLI) | payer OTHER, SELFPAY ==
[2023-10-08 14:55] LABS: Basophils Absolute Auto 0.1 K/mm3 (0.0-0.1); Basophils Percent Auto 0.8 % (0.2-1.2); Eosinophils Absolute Auto 0.2 K/mm3 (0-0.3); Eosinophils Percent Auto 2.4 % (0-4.4); Hematocrit 38.9 % (37.0-47.0); Hemoglobin 12.8 g/dL (12.0-15.0); Immature Granulocyte Absolute 0.01 K/mm3 (0.00-0.031); Immature Granulocyte Percent A 0.1 % (0-0.5); Lymphocytes Percent Auto 28.5 % (18.3-44.2); Mean Corpuscular HGB Conc 32.9 g/dl (32-36); Mean Corpuscular Hemoglobin 30.7 pg (26-34); Mean Corpuscular Volume 93.3 fl (80-100); Mean Platelet Volume 9.2 fl (7.4-10.4); Monocytes Absolute Auto 0.6 K/mm3 (0.1-0.6); Monocytes Percent Auto 7.3 % (2.6-8.5); Neutrophils Absolute Auto 5.3 K/mm3 (1.3-6.7); Neutrophils Percent Auto 60.9 % (45.5-73.1); Platelet Count Result 343 k/mm3 (150-375); Red Blood Count 4.17 M/mm3 (4.2-5.4); Red Cell Distribution Width 12.9 % (11.5-14.5); White Blood Count 8.8 K/mm3 (4.5-10.0)
[2023-10-08 16:30] LABS: Alanine Aminotransferase 26 U/L (6-35); Albumin Level 4.1 g/dL (3.5-5.1); Alkaline Phosphatase 73 U/L (38-126); Anion Gap 4 mmol/L (4-12); Aspartate Amino Transferase 31 U/L (14-36); Bilirubin,Total 0.4 mg/dL (0.2-1.3); Blood Urea Nitrogen 17 mg/dL (7-17); Calcium 9.3 mg/dL (8.4-10.2); Carbon Dioxide 26 mmol/L (22-30); Chloride 107 mmol/L (98-107); Estimated Glomerular Filt Rate > 60; Glucose 119 mg/dL (65-110); Potassium 3.6 mmol/L (3.4-5.0); Sodium 137 mmol/L (137-145)
[2023-10-10 08:08] LABS: CA 15-3 7 U/mL (<32)
== END 2023-10-08 14:43 | disposition home or self-care (01) ==
LOC: ANHLAB 14:44
PROVIDERS: PCP Nurse Practitioner Family; Visit Provider Internal Medicine Hematology & Oncology
DX: C50.411 Malignant neoplasm of upper-outer quadrant of right female breast (principal); Z17.0 Estrogen receptor positive status [ER+]
CPT/HCPCS: 36415; 80053; 85025; 86300

== ENCOUNTER 2024-04-23 08:56 | Outpatient (CLI) | payer OTHER, SELFPAY ==
[2024-04-23 09:09] LABS: Basophils Percent Auto 0.7 % (0.2-1.2); Eosinophils Absolute Auto 0.2 K/mm3 (0-0.3); Eosinophils Percent Auto 3.6 % (0-4.4); Hematocrit 41.7 % (37.0-47.0); Hemoglobin 13.6 g/dL (12.0-15.0); Immature Granulocyte Absolute 0.01 K/mm3 (0.00-0.031); Immature Granulocyte Percent A 0.2 % (0-0.5); Lymphocytes Absolute Auto 2.28 K/mm3 (0.9-3.2); Lymphocytes Percent Auto 37.1 % (18.3-44.2); Mean Corpuscular HGB Conc 32.6 g/dl (32-36); Mean Corpuscular Hemoglobin 29.8 pg (26-34); Mean Corpuscular Volume 91.2 fl (80-100); Mean Platelet Volume 8.9 fl (7.4-10.4); Monocytes Absolute Auto 0.5 K/mm3 (0.1-0.6); Monocytes Percent Auto 8.3 % (2.6-8.5); Neutrophils Absolute Auto 3.1 K/mm3 (1.3-6.7); Neutrophils Percent Auto 50.1 % (45.5-73.1); Platelet Count Result 327 k/mm3 (150-375); Red Blood Count 4.57 M/mm3 (4.2-5.4); Red Cell Distribution Width 13.3 % (11.5-14.5); White Blood Count 6.1 K/mm3 (4.5-10.0)
[2024-04-23 10:10] LABS: Alanine Aminotransferase 21 U/L (6-35); Albumin Level 4.2 g/dL (3.5-5.1); Alkaline Phosphatase 69 U/L (38-126); Anion Gap 7 mmol/L (4-12); Aspartate Amino Transferase 31 U/L (14-36); Bilirubin,Total 0.8 mg/dL (0.2-1.3); Blood Urea Nitrogen 23 mg/dL (7-17); Calcium 9.3 mg/dL (8.4-10.2); Carbon Dioxide 25 mmol/L (22-30); Chloride 105 mmol/L (98-107); Estimated Glomerular Filt Rate > 60; Glucose 145 mg/dL (65-110); Sodium 137 mmol/L (137-145)
[2024-04-25 01:49] LABS: CA 15-3 7 U/mL (<32)
== END 2024-04-23 08:57 | disposition home or self-care (01) ==
LOC: ANHLAB 08:57
PROVIDERS: PCP Family Medicine; Visit Provider Internal Medicine Hematology & Oncology
DX: C50.411 Malignant neoplasm of upper-outer quadrant of right female breast (principal); Z17.0 Estrogen receptor positive status [ER+]
CPT/HCPCS: 36415; 80053; 85025; 86300

== ENCOUNTER 2025-01-01 11:54 | Outpatient (CLI) | payer BC, SELFPAY ==
--- OUTSIDE RECORDS SUMMARY | 2025-01-01 11:57 | XMS_ITS | Clinical Summary ---
Author Organization [facility] Address [address] [place] [address] Phone Care Team Providers Care Monogram Maker Name Role Phone Byron Bartlett MD Primary Care Provider Allergies No known active allergies Medications Cetirizine (ZyrTEC) 10 mg Capsule Take by mouth daily with supper. Active escitalopram oxalate (LEXAPRO) 20 mg tablet Take 20 mg by mouth daily. Active acetaminophen (TYLENOL) 325 mg tablet Take 650 mg by mouth every 4 hours as needed. Active venlafaxine (EFFEXOR XR) 150 mg Extended Release 24 hour capsule Take 150 mg by mouth daily. 07/21/2021 Active zolpidem (AMBIEN) 10 mg tablet Take 10 mg by mouth daily at bedtime. 07/25/2021 Active metoprolol succinate (TOPROL XL) 25 mg Extended Release 24 hour tablet Take 25 mg by mouth daily. 08/23/2021 Active meloxicam (MOBIC) 15 mg tablet Take 1 Tablet by mouth daily. 10/06/2023 Active tamoxifen (NOLVADEX) 20 mg tabletIndication s:Malignant neoplasm of upper-outer quadrant of right breast in female, estrogen receptor positive (CMS/HCC) Take 1 Tablet (20 mg) by mouth daily. 90 Tablet 10/13/2024 Active Active Problems Patient Care Coordination No te Formatting of this note migh t be different from the original. Primary Care: Byron Bartlett MD [place]: [place] [id number] [place] [address] Other:Dr. Adalgisa Lindquist Problem Noted Date Diagnosed Date Chronic anemia 07/07/2021 Malignant neoplasm of upper- outer quadrant of right breast in female, estrogen receptor positive 05/30/2020 Overview (05/25/2021): Stage: Clinical T2 N0 ympT2 ypN0 Date of diagnosis: 05/24/2020 Diagnosis: RIGHT ILC ER(+) NC(+) Her 2 (+) Post chemo: 2.3 cm + 0.8 cm, 0/4 LN Surgeon: Luis Antonio Bella Surgery: 12/07/2020 right TM/SLN, TE 04/05/2021 implant exchange Medical Oncologist: Kathleen Chemotherapy: TCHP 07/12/2020- October 07, 2020 Herceptin started on January 06, 2021 Radiation: none Hormonal therapy: Tamoxifen Genetics: [facility] 2020 VUS Invasive lobular carcinoma of right breast in fe male Encounters Date Type Department Care Team Description 12/23/2024 External Device Data [facility] ABSTRACTION Provider, Abstract 12/23/2024 External Device Data [facility]STRACTION Provider, Abstract 12/23/2024 External Device Data [facility]STRACTION Provider, Abstract 12/22/2024 External Device Data [facility]STRACTION Provider, Abstract 12/08/2024 External Device Data [facility] ABSTRACTION Provider, Abstract 11/25/2024 External Device Data [facility] ABSTRACTION Provider, Abstract 11/24/2024 External Device Data [facility] ABSTRACTION Provider, Abstract 10/29/2024 External Device Data [facility] ABSTRACTION Provider, Abstract 10/28/2024 External Device Data [facility] ABSTRACTION Provider, Abstract 10/27/2024 External Device Data [facility] ABSTRACTION Provider, Abstract 10/13/2024 External Device Data [facility] ABSTRACTION Provider, Abstract 10/13/2024 Refill [facility] [place] [address] [facility] [address] [address] Malik Wang MD Malignant neoplasm of upper-outer quadrant of right breast in female, estrogen receptor positive (CMS/HCC) from Last 3 Months Immunizations Immunization Administration Dates Next Due ([employer])(12 YR UP) COVID-19 VACCINE - EMERGENCY USE AUTHORIZATION, MRNA, [id number]) 30 MCG/0.3 ML IM SUSP 09/09/2020,08/19/2020 Family History Medical History Relation Name Comments Breast Cancer Maternal Aunt 1 67 Lymphoma Maternal Aunt 2 Colon Cancer Paternal Grandmother 60's Ovarian Cancer Neg Hx Relation Name Status Comments Maternal Aunt 1 67 Maternal Aunt 2 Paternal Grandmother 60's Alive Social History Tobacco Use Types Packs/Day Years Used Date Smoking Tobacco: Never Smokeless Tobacco: Never Tobacco Cessation:Counseling Given: Not Answered Alcohol Use Standard Drinks/Week Comments Not Currently 0 (1 standard drink = 0.6 oz pur e alcohol) Comments No Sex and Gender Information Value Date Recorded Sex Assigned at Not on file Legal Sex Female 10:12 AM DIRECTOR OF LOGISTICS Gender Identity Not on file Sexual Orientation Not on file Last Filed Vital Signs Vital Sign Reading Time Taken Comments Blood Pressure 126/79 06/04/2024 11:44 AM DIRECTOR OF LOGISTICS Pulse 66 06/04/2024 11:44 AM DIRECTOR OF LOGISTICS Temperature 35.9 C (96.7 F) 10/11/2023 9:56 AM CDT Respiratory Rate 14 10/11/2023 9:56 AM CDT Oxygen Saturation 96% 10/11/2023 9:56 AM CDT Inhaled Oxygen Concentration - - Weight 74.8 kg (165 lb) 06/04/2024 11:44 AM DIRECTOR OF LOGISTICS Height 162.6 cm (5' 4) 06/04/2024 11:44 AM DIRECTOR OF LOGISTICS Body Mass Index 28.32 06/04/2024 11:44 AM DIRECTOR OF LOGISTICS Plan of Treatment Upcoming Encounters Date Type Department Care Team (Late st Contact Info) Description 01/08/2025 11:30 AM CDT Office Visit [facility] Oncology and Hematology - [place] [address] [place] [address] Malik Wang MD [address] [facility] [address] [place] [address] 06/08/2025 1:45 PM DIRECTOR OF LOGISTICS Appointment [facility] [address] [place] [address] [place] [address] [place] [address] 06/08/2025 2:30 PM DIRECTOR OF LOGISTICS Office Visit [facility] Breast Surgery Ayanajung Garcia [address] [place] [address] [place] [address] [place] [address] Health Maintenance Due Date Last Done Comments Pre-Diabetes and Diabetes Screening 1972 DTAP/TDAP/TD VACCINES (1 - Tdap) 12/15/1991 HEPATITIS B VACCINES (1 of 3 - 19+ 3-dose series) 12/15/1991 HPV/Cotest (21-29) 1993 CERVICAL CANCER SCREENING 2002 HPV/Cotest (30-65) 2002 PAP SMEAR 2002 COLORECTAL SCREENING 2017 Colorectal Cancer Screening 2017 FIT-DNA Q 3 years 2017 FIT/FOBT Q 1 year 2017 Flex Sig/CT Colonography Q 5 years 2017 ZOSTER VACCINE (1 of 2) 2022 COVID-19 Vaccine ( season) 02/09/202407/2020, 08/19/2020 Preventative Visit- Commercial 06/10/2024 INFLUENZA VACCINE (#1) 2025 Medical Devices Implanted Type Area Online Advertising Manager Device Identifier Shelf Expiration Date Model / Serial / Lot Door Assembler Clip Surgiclip Ii Fortino 9.75in [id number] - [id number] Implanted:Qty : 1 on 12/07/2020 by Adalgisa Lindquist MD at [facility] Clip Right: Breast [employer] - COVID[employer]EN [id number] 09/07/2025 [id number] / / [id number] Breast Inspira Ssf 335ml Ssf-335 - [id number] Implanted:Qty : 1 on 04/05/2021 by Blu Bella MD at [facility] Mammary Right: Breast [employer] MEDICAL 08/23/2025 SSF-335 / [id number] / Alloderm Matrix Tissue Thick 37e46md [id number] - [id number] Implanted:Qty : 1 on 12/07/2020 by Blu Bella MD at [facility] Tissue Right: Breast [employer] [id number] 04/09/2022 [id number] / / [id number] Port-Left Explanted Type Area Online Advertising Manager Device Identifier Shelf Expiration Date Model / Serial / Lot Hemostatic Surgicel 6x9in 1945 - [id number] Explanted:Qty : 1 on 12/07/2020 by Blu Bella MD at [facility] Hemostatic Right: Breast [employer] 01/07/20251945 / / [id number] Hemostatic Surgicel 6x9in 1945 - [id number] Explanted:Qty : 1 on 12/07/2020 by Blu Bella MD at [facility] Hemostatic Right: Breast [employer] 01/07/20251945 / / [id number] Tissue Roll Out Manager W/ Suture Tabs Smooth Full Height Extra Projection Implanted:Qty : 1 on 12/07/2020 by Blu Bella MD at [facility] Explanted:Qty : 1 on 04/05/2021 by Blu Bella MD at [facility] Right: Breast [employer] [id number] 12/12/2024 [id number]-FX- 12-T / [id number] / Description:Requisition # [id number]. Insurance [facility] OPEN ACCESS O CIG OPEN ACCESS HMO Advance Directives For more information, please contact: [phone] * Full Code (Latest Code Status on File) Date Activated Date Inactivated Comments 12/07/2020 12:19 PM 12/08/2020 1:20 PM Care Teams Monogram Maker Relationship Specialty Start Date End Date Byron Bartlett MD [address] [place] [id number] PCP - General Family Practice 05/24/20
[2025-01-01 12:04] LABS: Hematocrit 39.5 % (37.0-47.0); Hemoglobin 12.9 g/dL (12.0-15.0); Immature Granulocyte Percent A 0.3 % (0-0.5); Lymphocytes Absolute Auto 2.56 K/mm3 (0.9-3.2); Mean Corpuscular HGB Conc 32.7 g/dl (32-36); Mean Corpuscular Hemoglobin 30.4 pg (26-34); Mean Corpuscular Volume 92.9 fl (80-100); Nucleated Red Blood Cells Absolute Auto 0.000 K/mm3 (0.0-0.012); Nucleated Red Blood Cells Perc 0.0 % (0.0-0.2); Platelet Count Result 298 k/mm3 (150-375); Red Blood Count 4.25 M/mm3 (4.2-5.4); White Blood Count 6.3 K/mm3 (4.5-10.0)
[2025-01-01 13:51] LABS: Alanine Aminotransferase 20 U/L (6-35); Albumin Level 4.1 g/dL (3.5-5.1); Alkaline Phosphatase 75 U/L (38-126); Anion Gap 8 mmol/L (4-12); Aspartate Amino Transferase 41 U/L (14-36); Bilirubin,Total 0.6 mg/dL (0.2-1.3); Blood Urea Nitrogen 20 mg/dL (7-17); Calcium 9.1 mg/dL (8.4-10.2); Carbon Dioxide 25 mmol/L (22-30); Chloride 105 mmol/L (98-107); Estimated Glomerular Filt Rate > 60; Glucose 109 mg/dL (65-110); Potassium 4.1 mmol/L (3.4-5.0); Sodium 138 mmol/L (137-145); Total Protein 7.1 g/dL (6.3-8.2)
== END 2025-01-01 11:55 | disposition home or self-care (01) ==
PROVIDERS: PCP Family Medicine; Visit Provider Internal Medicine Hematology & Oncology
DX: C50.411 Malignant neoplasm of upper-outer quadrant of right female breast (principal); Z17.0 Estrogen receptor positive status [ER+]
CPT/HCPCS: 36415; 80053; 85025; 86300